=== PATIENT | male | born 1980 | race Caucasian/White ===

== ENCOUNTER 2024-03-12 08:16 | Emergency (ER) | payer MEDICAID ==
[~2024-03-12] VITALS: Ht 177.8 cm; Wt 67.8 kg
[2024-03-12 09:13] VITALS: TEMP 98.3
[2024-03-12] MEDS: HYDROcodone/acetaminophen 10/325mg tab PO STA (10:46)
[2024-03-12 13:58] VITALS: BP 156/86; PULSE 86; RESP 16; O2SAT 100
[2024-03-12] MEDS ORDERED: HYDR-3965 PO (14:50)
== END 2024-03-12 14:01 | disposition home or self-care (01) ==
LOC: ER 08:16
DX: S62.011A Displaced fracture of distal pole of navicular [scaphoid] bone of right wrist, initial encounter for closed fracture (principal); S52.501A Unspecified fracture of the lower end of right radius, initial encounter for closed fracture; S62.015A Nondisplaced fracture of distal pole of navicular [scaphoid] bone of left wrist, initial encounter for closed fracture; S43.101A Unspecified dislocation of right acromioclavicular joint, initial encounter; Z79.899 Other long term (current) drug therapy; X58.XXXA Exposure to other specified factors, initial encounter; Y93.89 Activity, other specified; Y92.89 Other specified places as the place of occurrence of the external cause; Y99.8 Other external cause status
CPT/HCPCS: 29125; 73030; 73110; 99284; A4565; A6449